=== PATIENT | male | born 1980 | race Caucasian/White ===

== ENCOUNTER 2017-03-24 13:39 | Emergency (ER) | payer MEDICAID, OTHER ==
[2017-03-24 14:03] VITALS: BP 148/97
[2017-03-24] MEDS ORDERED: methylPREDNISolone SOD SUCC 125 MG/2 ML VL IV ONE (14:30)
[2017-03-24] MEDS ORDERED: diphenhdrAMINE HCL 50 MG/1 ML VL IV ONE (14:30)
[2017-03-24] MEDS ORDERED: EPINEPHrine HCL 1 MG/1 ML AMP IM ONE (14:30)
[2017-03-24] MEDS ORDERED: SODIUM CHLORIDE 0.9% 1,000 ML IV ONE ×2 (14:30→15:30)
== END 2017-03-24 17:04 | disposition home or self-care (01) ==
LOC: ER 13:42
DX: T78.40XA Allergy, unspecified, initial encounter (principal); L50.0 Allergic urticaria; M25.572 Pain in left ankle and joints of left foot; M25.571 Pain in right ankle and joints of right foot; Z87.891 Personal history of nicotine dependence; F12.10 Cannabis abuse, uncomplicated; I10 Essential (primary) hypertension; Z88.1 Allergy status to other antibiotic agents
CPT/HCPCS: 81002; 96361; 96372; 96374; 96375; 99285; J0171; J1200; J2930; J7030